=== PATIENT | male | born 1960 | race Caucasian/White ===

== ENCOUNTER 2017-01-21 06:45 | Day surgery (SDC) ==
[2014-12-24 14:14] VITALS: BMI 32.1
[2017-01-21] MEDS: LIDOCAINE 1% 20 ML MDV ID ONE (07:39)
[2017-01-21] MEDS ORDERED: DIPRIVAN 20 ML VIAL IVP ONE (08:05)
[2017-01-21] MEDS ORDERED: VERSED ONE (08:05)
[2017-01-21 14:41] VITALS: BP 125/85; TEMP 97.2
--- NOTE | 2017-01-21 15:04 | OP ---
INDICATIONS FOR PROCEDURE: 56-year-old gentleman presents for colonoscopy exam. Scheduled for surveillance exam with history of polyps, adenomatous five years ago. Incidently, has chronic alternating constipation and diarrhea. He is having more diarrhea lately. He has a history of IBS. MEDICATIONS: SEE ANESTHESIA NOTES. PROCEDURE: COLONOSCOPY, SNARE POLYPECTOMY. REPORT: The risks, benefits, alternatives and limitations were discussed in detail with the patient. Informed consent was obtained. After adequate sedation was achieved, a digital rectal exam revealed good tone, no masses. The colonoscope was introduced into the rectum and advanced under direct visual guidance to the cecum. The cecum was identified by the appendiceal orifice and IC valve. I was able to intubate the terminal ileum and examine a distal 10 cm which was unremarkable. On withdrawing the scope back in the cecum, there is a 6 mm sessile polyp at the junction of the cecum and ascending colon. I removed this by snare technique. Withdrawing the scope further in a circumferential manner, examined the mucosa quite carefully. I noticed a 7 mm polyp in the distal transverse colon. I removed this by snare technique as well. I looked on the proximal and distal side of folds and flexures as best as possible in the remaining colon. I retroflexed the scope in the right colon and left colon to increase visualization. I noted diverticulosis in the sigmoid. No other abnormalities were noted including on retroflex view of the anal canal. The prep was good. The withdrawal time was 12 minutes and 34 seconds. The patient tolerated the procedure well with stable vital signs and pulse oximetry throughout. IMPRESSION: 1. TWO (2) POLYPS SUCCESSFULLY REMOVED. 2. DIVERTICULOSIS. RECOMMENDATIONS: 1. High fiber diet. 2. His insurance will not cover his Librax so we are going to switch him to Bentyl 10 mg q.6hr p.r.n. abdominal discomfort and diarrhea. 3. Await polyp pathology. If everything is benign, I recommend a surveillance examination again in five years, sooner if signs or symptoms would indicate otherwise. 4. Will see him back in the office as needed. CC: DR. FIDELIA REYNOLDS
== END 2017-01-21 09:48 | disposition home or self-care (01) ==
LOC: SURG 06:45
PROVIDERS: ATTEND Internal Medicine Gastroenterology
DX: Z09 Encounter for follow-up examination after completed treatment for conditions other than malignant neoplasm (principal); Z86.010 Personal history of colon polyps; D12.0 Benign neoplasm of cecum; D12.3 Benign neoplasm of transverse colon; K59.09 Other constipation; R19.7 Diarrhea, unspecified; K57.30 Diverticulosis of large intestine without perforation or abscess without bleeding; E11.9 Type 2 diabetes mellitus without complications

== ENCOUNTER 2017-09-15 14:30 | Outpatient (CLI) ==
[2014-12-24 14:14] VITALS: BMI 32.1
--- NOTE | 2017-09-15 16:16 | DI ---
EXAM: Three views of the right foot. History: Right foot pain. Findings: No acute fracture or dislocation. Joint spaces are preserved. No soft tissue radiopaque foreign bodies. Atherosclerotic vascular calcifications. Minimal calcaneal enthesiopathy. Impression: 1. No acute osseous abnormality. 2. Atherosclerotic vascular disease
== END 2017-09-15 14:31 | disposition home or self-care (01) ==
LOC: RAD 14:30
PROVIDERS: ATTEND Family Medicine
DX: M79.671 Pain in right foot (principal)